=== PATIENT | male | born 1975 | race Caucasian/White ===

== ENCOUNTER → 2018-09-03 | Outpatient (CLI) | payer BC ==
[~2018-09-03] MED LIST: AMLO2.5T5 PO; ATEN25TA PO; LOSA25TA54 PO; PRAV10TA2 PO
--- NOTE | 2018-09-03 09:00 | KCIC ---
Indication:Right upper quadrant abdominal pain for one week. TECHNIQUE: Grayscale, color Doppler and spectral waveform is of the abdomen obtained. COMPARISON: CT abdomen pelvis from 03/11/2016 FINDINGS: The visualized pancreas is within normal limits. No gallstones, pericholecystic fluid or gallbladder wall thickening. IVC within normal limits. Liver is mildly enlarged measuring 20.5 cm in longest dimension with diffusely increased echogenicity. Main portal patent. CBD measures 3 mm in diameter and is within normal limits. Right kidney measures 12.8 cm in length without hydronephrosis. Positive sonographic Graham's sign. IMPRESSION: 1. Mild hepatomegaly with hepatic steatosis. 2. No cholelithiasis or sonographic evidence of acute cholecystitis. Electronically signed by: Jesus Mendieta DO (09/03/2018 8:57 AM) [id number]
== END | disposition home or self-care (01) ==
LOC: KCIC US 07:46
PROVIDERS: ATTEND Physician Assistant Medical
DX: K76.0 Fatty (change of) liver, not elsewhere classified (principal); R16.0 Hepatomegaly, not elsewhere classified
CPT/HCPCS: 76705